=== PATIENT | male | born 1980 | race Caucasian/White ===

== ENCOUNTER 2022-05-31 11:46 | Emergency (ER) | payer OTHER ==
[~2022-05-31] VITALS: Ht 170.2 cm; Wt 90.9 kg
[2022-05-31 13:41] LABS: GLUCOSE,POINT OF CARE 113 MG/DL (70-110)
[2022-05-31] MEDS: HYDROCODONE/ACETAMINOPHEN 5-325 MG TABLET PO ONE (14:21)
[2022-05-31 15:21] VITALS: BP 119/83
== END 2022-05-31 16:55 ==
LOC: EMS 11:51
DX: S32.018A Other fracture of first lumbar vertebra, initial encounter for closed fracture (principal); S32.028A Other fracture of second lumbar vertebra, initial encounter for closed fracture; S32.038A Other fracture of third lumbar vertebra, initial encounter for closed fracture; S32.048A Other fracture of fourth lumbar vertebra, initial encounter for closed fracture; S30.0XXA Contusion of lower back and pelvis, initial encounter; S70.01XA Contusion of right hip, initial encounter; E11.9 Type 2 diabetes mellitus without complications; I10 Essential (primary) hypertension; W17.89XA Other fall from one level to another, initial encounter; Y93.89 Activity, other specified; Y92.89 Other specified places as the place of occurrence of the external cause; Y99.8 Other external cause status
CPT/HCPCS: 71101; 73503; 74176; 82962; 99284